=== PATIENT | male | born 1995 | race Caucasian/White ===

== ENCOUNTER 2020-08-24 14:54 | Inpatient (IN) | payer MEDICARE, MEDICAID, SELFPAY ==
[2020-08-24 14:55] VITALS: BP 133/87; PULSE 86; RESP 18; TEMP 36.6; O2SAT 94; BMI 39.9
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
[2020-08-24 15:08] VITALS: RESP 18
--- NOTE | 2020-08-24 15:48 | PC.NURSE ---
Patient reports he now wants to leave as he does not want to be here, states he was not told he was being brought here and was under the impression he was going to [facility]. Patient refusing to change out of his clothes into appropriate scrubs or allow nursing to draw blood/get urine
[2020-08-24 16:46] LABS: Basophils # 0.1 10^3/uL (0.0-0.1); Basophils % 0.7 %; Eosinophils # 0.1 10^3/uL (0.0-0.8); Eosinophils % 1.4 %; Hematocrit 43.2 % (42.0-52.0); Lymphocytes # 2.7 10^3/uL (0.8-4.8); Lymphocytes % 27.6 %; Mean Corpuscular HGB Conc 32.4 g/dL (30.0-36.0); Mean Corpuscular Hemoglobin 26.9 pg (28.0-34.0); Mean Corpuscular Volume 83.1 fL (80-94); Mean Platelet Volume 8.5 fL (7.4-10.4); Monocytes # 0.7 10^3/uL (0.2-0.9); Monocytes % 6.8 %; Neutrophils # 6.26 10^3/uL (1.8-7.7); Neutrophils % 63.1 %; Nucleated Red Blood Cells % 0 %; Platelet Count 353 10^3/cmm (130-400); Red Cell Distribution Width 13.5 % (12.1-15.1); White Blood Count 9.9 10^3/uL (4.0-10.0)
[2020-08-24 16:56] VITALS: RESP 18
[2020-08-24 17:05] LABS: Add Urine Microscopic? NO
[2020-08-24 17:07] LABS: Bilirubin Urine Neg (Negative); Blood Urine Neg (Negative); Glucose Urine UA Norm (Normal); Ketones Urine Negative (Negative); Leukocyte Esterase Urine Negative (Negative); Nitrate Urine Negative (Negative); Protein Urine Neg (Negative); Specific Gravity, Urine 1.015 (1.005-1.030); Sulfosalicylic Acid Urine Negative (Negative); Urine Appearance Clear (CLEAR); Urine Color Yellow (Yellow); Urobilinogen Urine Norm (Negative); pH Urine 9 (5-7)
[2020-08-24 17:16] LABS: Alanine Aminotransferase 33 U/L (0-41); Albumin Level 4.3 g/dL (3.5-5.2); Alkaline Phosphatase 128 IU/L (40-130); Anion Gap 16.1 (5-19); Aspartate Amino Transferase 16 U/L (0-40); Blood Urea Nitrogen 9 mg/dL (6-20); Calcium 9.3 mg/dL (8.5-10.5); Carbon Dioxide 21 mmol/L (22-29); Chloride 107 mmol/L (98-107); Globulin 2.4 g/dL (1.3-4.6); Glomerular Filtration Rate 136.3 mL/min (90-130); Glucose 118 mg/dL (65-115); Osmolality Calculated 290 mOsm/kg (285-295); Potassium 4.1 mmol/L (3.5-5.1); Sodium 140 mmol/L (136-145); Total Bilirubin 0.2 mg/dL (0.15-1.2); Total Protein 6.7 g/dL (6.6-8.7)
[2020-08-24 17:29] VITALS: BP 114/77; PULSE 76; RESP 18; TEMP 36.4; O2SAT 98
[2020-08-24 17:47] LABS: Salicylate < 0.3 mg/dL (3-10)
[2020-08-24 17:48] LABS: Acetaminophen < 5.0 ug/mL (10-30); Alcohol Level < 10 mg/dL (0-10)
[2020-08-24 18:15] LABS: Amphetamines Screen Urine Negative (Negative); Barbiturates Screen Urine Negative (Negative); Benzodiazepines Screen Urine Positive (Negative); Cocaine Screen Urine Negative (Negative); Opiate Screen Urine Negative (Negative); PCP Screen Urine Negative (Negative); THC Screen Urine Negative (Negative)
[2020-08-24 20:35] VITALS: BP 119/83; PULSE 83; RESP 16; TEMP 36.5; O2SAT 96
[2020-08-24] MEDS: hyDROXYzine 25 mg Capsule 50 MG PO (21:01)
[2020-08-25 06:00] VITALS: BP 116/54; PULSE 75; RESP 16; TEMP 36.5; O2SAT 97
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
[2020-08-25 13:40] VITALS: BP 123/76; PULSE 100; RESP 18; TEMP 36.9; O2SAT 93
[2020-08-25] MEDS: OLANZapine 5 mg ODT PO (13:59)
--- NOTE | 2020-08-25 14:11 | PC.NURSE ---
PRN Zyprexa Rubio Patient expresses anxiety and requested medication.
[2020-08-25 20:24] VITALS: BP 125/58; PULSE 120; RESP 16; TEMP 36.5; O2SAT 97
[2020-08-25] MEDS: hyDROXYzine 25 mg Capsule 50 MG PO (21:09)
[2020-08-25] MEDS: trazodone 50 mg Tablet PO (21:09)
[2020-08-26 06:00] VITALS: BP 84/54; PULSE 79; RESP 14; TEMP 37; O2SAT 97
[2020-08-26 14:00] VITALS: BP 99/61; PULSE 97; RESP 20; TEMP 36.6; O2SAT 98
--- NOTE | 2020-08-26 16:39 | PM.NPN ---
Subjective NPU Subjective: Interval history: Jacob presented today reporting that he is feeling a little better as we were able to get his Trintellix from an outside pharmacy and allow for administration here given the pharmacy here does not have his medication. Additionally we did get an interview for him that will be tomorrow for a reasonable living arrangement. He is excited but but anxious about being in the hospital. We agreed we would have the interview tomorrow and begin making plans from there. He is eating fine and sleeping okay. Mental Status Exam MSE Comments: This is an obese white male with adequate dress, grooming and eye contact. No abnormal movements except for mild psychomotor agitation. Cooperative with exam in mild distress. Speech was normal rate and volume. Mood described as anxious, affect congruent. Thought process organized. Thought content: Patient denied any suicidal or homicidal ideation, no delusions were noted, he denied any auditory or visual hallucinations. Attention and concentration were intact and memory appeared reliable but none were formally tested. He is alert and oriented x3. Insight and judgment are limited, impulse control is limited and intellectual ability is impaired. Vitals/I&O/Wt Last Vital Signs Temp 97.7 F 08/26/20 20:30 Pulse 102 H 08/26/20 20:30 Resp 16 08/26/20 20:30 BP 130/80 08/26/20 20:30 Pulse Ox 94 08/26/20 20:30 08/26/20 08/26/20 08/27/20 14:59 22:59 06:59 Intake Total 240 / 240 Balance 240 / 240 Weight last 48 hrs Weight 108.862 kg Data NPU : 08/24/20 16:40 08/24/20 16:40 A&P Additional A&P Information (1) Suicidal ideation: (2) Major depressive disorder, recurrent, moderate: (3) Obstructive sleep apnea (adult) (pediatric): (4) Schizotypal disorder: (5) Generalized anxiety disorder: (6) Intellectual disability: This is a 24-year-old white male with intellectual disability, social, and uncontrolled issues and recent challenges with his living arrangements who presents with suicidal ideation. 1. Continue current medication. 2. Continue 15-minute checks for safety. 3. Encourage individual, group and milieu therapy. 4. We will work with social work team to look at possible short-term living arrangements. Involuntary Hold Information 96 Hour Hold: 96 Hour Involuntary Admission: Yes 96 Hour Hold Ending Date: 08/30/20 96 Hour Hold Ending Time: 00:01 Attestations NPU Medical Necessity Statement*: Inpatient hospitalization is medically necessary and the clinically appropriate intervention at this time. We will monitor medications and make changes as indicated. Likely length of stay 2-4 days. Coding Level of Care Code Acute Sign Painter Helper for Melva Pagan
[2020-08-26 20:30] VITALS: BP 130/80; PULSE 102; RESP 16; TEMP 36.5; O2SAT 94
[2020-08-26] MEDS: trazodone 50 mg Tablet PO (20:57)
[2020-08-26] MEDS: hyDROXYzine 25 mg Capsule 50 MG PO (20:57)
[2020-08-26] MEDS: CLONazepam 0.5 mg Tablet PO (22:33)
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
[2020-08-27 06:00] VITALS: BP 104/60; PULSE 82; RESP 15; TEMP 36.7; O2SAT 95
[2020-08-27 14:00] VITALS: BP 108/64; PULSE 108; RESP 20; TEMP 36.3; O2SAT 97
--- NOTE | 2020-08-27 14:35 | PM.NPN ---
Subjective NPU Subjective: Interval history: Weight is really struggling with his anxiety today. He met with the housing option that was being explored and now he is anxious about it being in [place] because he reports that he was having thoughts of leaving the state. We had a long discussion about how critical it is given his mental health challenges for him to plan pulmonary that he must. So that he knows he cannot have his medication and that he is going to be financially and emotionally stable. He began talking about going home to his mom's house/apartment when in fact per his report he cannot go back there so his anxiety is currently really driving his desire to escape and get out of here. Mental Status Exam MSE Comments: This is an obese white male with adequate dress, grooming and eye contact. No abnormal movements except for mild psychomotor agitation. Cooperative with exam in mild distress. Speech was normal rate and volume. Mood described as anxious, affect congruent. Thought process organized. Thought content: Patient denied any suicidal or homicidal ideation, no delusions were reported or noted, he denied any auditory or visual hallucinations. Attention and concentration were intact and memory appeared reliable but none were formally tested. He is alert and oriented x3. Insight and judgment are limited, impulse control is limited and intellectual ability is impaired. Vitals/I&O/Wt Last Vital Signs Temp 98.2 F 08/27/20 20:45 Pulse 94 08/27/20 20:45 Resp 18 08/27/20 20:45 BP 135/80 08/27/20 20:45 Pulse Ox 98 08/27/20 20:45 Data NPU : 08/24/20 16:40 08/24/20 16:40 A&P Additional A&P Information (1) Suicidal ideation: (2) Major depressive disorder, recurrent, moderate: (3) Obstructive sleep apnea (adult) (pediatric): (4) Schizotypal disorder: (5) Generalized anxiety disorder: (6) Intellectual disability: This is a 24-year-old white male with intellectual disability, social, and uncontrolled issues and recent challenges with his living arrangements who presents with suicidal ideation. 1. Continue current medication. 2. Continue 15-minute checks for safety. 3. Encourage individual, group and milieu therapy. 4. We will work with social work team to look at possible short-term living arrangements. Involuntary Hold Information 96 Hour Hold: 96 Hour Involuntary Admission: Yes 96 Hour Hold Ending Date: 08/30/20 96 Hour Hold Ending Time: 00:01 Attestations NPU Medical Necessity Statement*: Inpatient hospitalization is medically necessary and the clinically appropriate intervention at this time. We will monitor medications and make changes as indicated. Likely length of stay 1-3 days. Coding Level of Care Code Acute Gynaecological Oncologist for Melva Pagan
[2020-08-27] MEDS: CLONazepam 0.5 mg Tablet PO (20:38)
[2020-08-27] MEDS: trazodone 50 mg Tablet PO (20:38)
[2020-08-27] MEDS: hyDROXYzine 25 mg Capsule 50 MG PO (20:39)
[2020-08-27 20:45] VITALS: BP 135/80; PULSE 94; RESP 18; TEMP 36.8; O2SAT 98
[2020-08-28 06:00] VITALS: BP 109/68; PULSE 64; RESP 17; TEMP 36.7; O2SAT 98
[2020-08-28 13:13] VITALS: BP 121/81; PULSE 102; RESP 18; TEMP 36.4; O2SAT 96
--- NOTE | 2020-08-28 17:11 | PM.NPN ---
Subjective NPU Subjective: Interval history: Weight presented today fairly anxious about discharge and desiring to go back to his mom's place. We were able to talk to both mom and him to get a beltran sense of the dynamics. Her greatest concern was his absence of effective anxiety treatment which we now know was in part due to him being off of the medication for a period of time due to lack of having a provider but also to likely ineffectiveness of the medication. We discussed the risk benefits and alternatives of discontinuing the Trintellix and starting Paxil as well as resuming a low-dose as needed of Inderal and he understood and agreed to proceed as is documented in this note. Mental Status Exam MSE Comments: This is an obese white male with adequate dress, grooming and eye contact. No abnormal movements except for mild psychomotor agitation. Cooperative with exam in mild distress. Speech was normal rate and volume. Mood described as anxious, affect congruent. Thought process organized. Thought content: Patient denied any suicidal or homicidal ideation, no delusions were reported or noted, he denied any auditory or visual hallucinations. Attention and concentration were intact and memory appeared reliable but none were formally tested. He is alert and oriented x3. Insight and judgment are limited, impulse control is limited and intellectual ability is impaired. Vitals/I&O/Wt Last Vital Signs Temp 97.7 F 08/28/20 20:24 Pulse 95 08/28/20 20:24 Resp 19 H 08/28/20 20:24 BP 125/84 08/28/20 20:24 Pulse Ox 93 08/28/20 20:24 Data NPU : 08/24/20 16:40 08/24/20 16:40 A&P Additional A&P Information (1) Suicidal ideation: (2) Major depressive disorder, recurrent, moderate: (3) Obstructive sleep apnea (adult) (pediatric): (4) Schizotypal disorder: (5) Generalized anxiety disorder: (6) Intellectual disability: This is a 24-year-old white male with intellectual disability, social, and uncontrolled issues and recent challenges with his living arrangements who presents with suicidal ideation. 1. Continue current medication. Discontinue Trintellix, start Paxil 20 mg p.o. daily and Inderal 10 mg p.o. 3 times daily as needed. 2. Continue 15-minute checks for safety. 3. Encourage individual, group and milieu therapy. 4. We will work with social work team to look at possible short-term living arrangements. Involuntary Hold Information 96 Hour Hold: 96 Hour Involuntary Admission: Yes 96 Hour Hold Ending Date: 08/30/20 96 Hour Hold Ending Time: 00:01 Attestations NPU Medical Necessity Statement*: Inpatient hospitalization is medically necessary and the clinically appropriate intervention at this time. We will monitor medications and make changes as indicated. Likely length of stay 1-3 days. Coding Level of Care Code Acute Branch Operation Evaluation Manager for Melva Pagan
--- NOTE | 2020-08-28 19:37 | NUR.SHIFT ---
PM Assessment Pt is pacing in his room at this time. He reports pain in both of his feet as a 7 on a 1-10 pain scale. He says I have pain in my feet a lot because I am flat footed. Pt seems anxious, reports racing negative thoughts. Pt is worried that he has black circles under his eyes and wants to know if his Iron levels are low or he is anemic. He reports low energy and chronic fatigue. Pt reports Klonipin makes his tired during the day when he takes it but it slows down the thoughts. Will continue to monitor patient this evening.
[2020-08-28] MEDS: acetaminophen 325 mg Tablet 650 MG PO (20:06)
[2020-08-28] MEDS: PARoxetine 20 mg Tablet PO (20:06)
[2020-08-28] MEDS: hyDROXYzine 25 mg Capsule 50 MG PO (20:06)
--- NOTE | 2020-08-28 20:21 | PC.NURSE ---
PRN MED PT GIVEN 50MG VISTARIL FOR STATED ANXIETY, WILL CONTINUE TO MONITOR.
[2020-08-28 20:24] VITALS: BP 125/84; PULSE 95; RESP 19; TEMP 36.5; O2SAT 93
[2020-08-28] MEDS: trazodone 50 mg Tablet PO (23:42)
--- NOTE | 2020-08-28 23:44 | PC.NURSE ---
PRN MED PT GIVEN 50MG TRAZADONE FOR INSOMNIA, WILL CONTINUE TO MONITOR.
--- NOTE | 2020-08-29 03:45 | PC.NURSE ---
Discharge Plans? Pt is anxious and wants to know what the plan is for his discharge. He told staff that he is ready to go home and wants to try to live with his mother again. He knows that this was not the best choice before but thinks it may be better this time around. I asked the patient why he decided to avoid the nursing home and he said it would cause him to much anxiety to have a room mate.. He also said that the homeless long-term would be worse. he says he feels trapped in his life but when offered potential changes to his living arrangement, he refuses.
[2020-08-29 06:00] VITALS: BP 108/68; PULSE 63; RESP 17; TEMP 36.7; O2SAT 97
[2020-08-29] MEDS: PARoxetine 20 mg Tablet PO (08:19)
--- NOTE | 2020-08-29 12:48 | PM.NPN ---
Subjective NPU Subjective: Interval history: Weight presents today reporting that he is tolerating the change in the medication quite well. He reports that he did have some of the Inderal which was helpful as well. We discussed our conversation with his mother and her reporting that she needed to know that he had something effective for his anxiety before he came back in the house. We discussed the possibility of discharge tomorrow if he continues to feel better finally. Mental Status Exam MSE Comments: This is an obese white male with adequate dress, grooming and eye contact. No abnormal movements except for resolving psychomotor agitation. Cooperative with exam in mild distress, but improving. Speech was normal rate and volume. Mood described as a little better, affect congruent. Thought process organized. Thought content: Patient denied any suicidal or homicidal ideation, no delusions were reported or noted, he denied any auditory or visual hallucinations. Attention and concentration were intact and memory appeared reliable but none were formally tested. He is alert and oriented x3. Insight and judgment are improving, impulse control is limited and intellectual ability is impaired. Vitals/I&O/Wt Last Vital Signs Temp 98.1 F 08/29/20 06:00 Pulse 63 08/29/20 06:00 Resp 17 08/29/20 06:00 BP 108/68 08/29/20 06:00 Pulse Ox 97 08/29/20 06:00 Data NPU : 08/24/20 16:40 08/24/20 16:40 A&P Additional A&P Information (1) Suicidal ideation: (2) Major depressive disorder, recurrent, moderate: (3) Obstructive sleep apnea (adult) (pediatric): (4) Schizotypal disorder: (5) Generalized anxiety disorder: (6) Intellectual disability: This is a 24-year-old white male with intellectual disability, social, and uncontrolled issues and recent challenges with his living arrangements who presents with suicidal ideation. 1. Continue current medication. 2. Continue 15-minute checks for safety. 3. Encourage individual, group and milieu therapy. 4. Tentative plan for discharge back to his mother's apartment tomorrow. Involuntary Hold Information 96 Hour Hold: 96 Hour Involuntary Admission: Yes 96 Hour Hold Ending Date: 08/30/20 96 Hour Hold Ending Time: 00:01 Attestations NPU Medical Necessity Statement*: Inpatient hospitalization is medically necessary and the clinically appropriate intervention at this time. We will monitor medications and make changes as indicated. Likely length of stay 1-2 days. Coding Level of Care Code Acute Graphic Design Intern for Melva Pagan
[2020-08-29 14:00] VITALS: BP 125/63; PULSE 86; RESP 18; TEMP 37; O2SAT 96
[2020-08-29 20:10] VITALS: BP 126/82; PULSE 83; RESP 19; TEMP 36.6; O2SAT 95
[2020-08-29] MEDS: hyDROXYzine 25 mg Capsule 50 MG PO (21:33)
[2020-08-29] MEDS: CLONazepam 0.5 mg Tablet PO (21:33)
[2020-08-29] MEDS: trazodone 50 mg Tablet PO (21:34)
[2020-08-30 06:00] VITALS: BP 91/55; PULSE 72; RESP 17; TEMP 36.4; O2SAT 99
[2020-08-30] MEDS: PARoxetine 20 mg Tablet PO (08:14)
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
[2020-08-30 11:42] VITALS: BP 91/55; PULSE 72; RESP 17; TEMP 36.4; O2SAT 99
--- NOTE | 2020-09-27 15:37 | PC.SOCIAL ---
Refill request received, confirmed with patient he wanted [facility]. GAGE Pack will call in at Dr. Jimenez request.
== END 2020-08-30 12:54 | disposition home or self-care (01) | DRG 885 ==
LOC: ER 17:04 → NP 17:10
PROVIDERS: Emergency Medicine; Registered Nurse; Admitting Provider Psychiatry & Neurology Psychiatry; Emergency Provider Nurse Practitioner Family; Visit Provider Psychiatry & Neurology Psychiatry
DX: F33.1 Major depressive disorder, recurrent, moderate (principal); R45.851 Suicidal ideations; G47.33 Obstructive sleep apnea (adult) (pediatric); F21 Schizotypal disorder; F41.1 Generalized anxiety disorder; F79 Unspecified intellectual disabilities; Z87.891 Personal history of nicotine dependence; Z91.5 Personal history of self-harm
CPT/HCPCS: 12345; 36415; 80053; 80306; 80307; 81003; 85025; 99284

== ENCOUNTER → 2021-10-06 10:31 | Outpatient (BNVA) | payer MEDICARE, MEDICAID, SELFPAY | PROVIDERS: PCP Family Medicine; Visit Provider Registered Nurse | DX: Z79.899 Other long term (current) drug therapy (principal) | CPT/HCPCS: 36415; 80053; 80061; 82306; 82607; 83036; 84443; 85025 ==

== ENCOUNTER → 2021-11-20 13:38 | Outpatient (BNVA) | payer MEDICARE, MEDICAID, SELFPAY | PROVIDERS: PCP Family Medicine; Visit Provider Nurse Practitioner | DX: F41.1 Generalized anxiety disorder (principal); F21 Schizotypal disorder; F79 Unspecified intellectual disabilities; F33.1 Major depressive disorder, recurrent, moderate; R41.83 Borderline intellectual functioning; F43.12 Post-traumatic stress disorder, chronic | CPT/HCPCS: 99215 ==

== ENCOUNTER → 2022-01-28 08:00 | Outpatient (BNVA) | payer MEDICARE, MEDICAID, SELFPAY | PROVIDERS: PCP Family Medicine; Visit Provider Nurse Practitioner | DX: F43.12 Post-traumatic stress disorder, chronic (principal); F41.1 Generalized anxiety disorder; F33.1 Major depressive disorder, recurrent, moderate; R41.83 Borderline intellectual functioning; F21 Schizotypal disorder; F79 Unspecified intellectual disabilities | CPT/HCPCS: 99214 ==

== ENCOUNTER → 2022-02-13 15:04 | Outpatient (BNVA) | payer MEDICARE, MEDICAID, SELFPAY | PROVIDERS: PCP Family Medicine; Visit Provider Nurse Practitioner | DX: F41.1 Generalized anxiety disorder (principal); F21 Schizotypal disorder; F33.1 Major depressive disorder, recurrent, moderate; F79 Unspecified intellectual disabilities; F43.12 Post-traumatic stress disorder, chronic | CPT/HCPCS: 99214 ==

== ENCOUNTER 2022-05-10 06:48 | Emergency (ER) | payer MEDICARE, MEDICAID, SELFPAY ==
[2022-05-10 06:56] VITALS: BP 138/111; PULSE 82; RESP 16; TEMP 37; O2SAT 98; BMI 37.8
--- NOTE | 2022-05-10 07:11 | W.ED.PSYCHS ---
HPI - Psych General: Chief Complaint: Psychiatric Symptoms Stated Complaint: SI; OUT OF MEDS Time Seen by Provider: 05/10/22 07:00 History of Present Illness: 26-year-old male presents with feelings of depression, some anxiety and paranoia. Patient reports he just feels paranoid and shaky all the time that people are just watching him and staring at him and is always at the center of attention. Patient reports that he is currently dealing with extra stress of his mom being in the hospital for Guillain-Munoz?. Patient denies any thoughts of current wanting to hurt himself but states that he has had those thoughts on and off in the past and had felt like he had them a couple days ago. He denies any thoughts of wanting to hurt anybody else. Patient reports that he recently just got back in the area from [place] after being down with his dad. Patient denies any fever chills or any other systemic complaints. Associated symptoms: Reports depression Review of Systems Const: Denies: fever(s) or chills Eyes: Denies: change in vision or eye discharge ENMT: Denies: throat pain or ear or mastoid pain Card: Denies: chest pain, palpitations or lightheadedness Resp: Denies: dyspnea or productive cough GI: Denies: abdominal pain, nausea or vomiting : Denies: flank pain or difficulty urinating Musc: Denies: neck pain or back pain Skin/Breast: Denies: rash or pruritus Neuro: Denies: headache(s), numbness in extremities or sensory changes Psych: Reports: anxiety, depression, panic attacks, hopelessness and paranoia Endo: Denies: polyuria or polydipsia All/Imm: Denies: urticaria or throat swelling [facility] ED PFSH: Medical History (Updated 05/10/22 @ 15:22 by Alessandro Rodriguez DO) Borderline intellectual functioning Chronic post-traumatic stress disorder Generalized anxiety disorder High level of expressed emotion within family Inadequate housing Major depressive disorder, recurrent, moderate Obstructive sleep apnea (adult) (pediatric) untreated Panic attack Psychiatric care Schizotypal disorder Family History Family/Other CAD (coronary artery disease) Diabetes Social History Quit status (tobacco): has quit using tobacco Second hand smoke exposure: No Alcohol intake: former History of recent travel: No Physical Exam Const: COMMON NORMALS: patient oriented x3 GENERAL APPEARANCE: cooperative, well kempt and anxious; not ill appearing HENMT: COMMON NORMALS: normocephalic, atraumatic and hearing grossly normal bilaterally HEAD & SCALP: normocephalic and atraumatic Eye: COMMON NORMALS: Equal, round and reactive pupils present and EOMs intact bilaterally PUPIL: Yes Equal, round and reactive pupils present Neck/C-Spine: COMMON NORMALS: full ROM and supple Chest: COMMONS NORMALS: normal inspection of the chest Resp: COMMON NORMALS: normal respiratory effort and No use of accessory muscles Cardio: COMMON NORMALS: regular rate and regular rhythm RATE: regular rate RHYTHM: regular rhythm GI: COMMON NORMALS: Normal to inspection, nondistended, normoactive bowel sounds present, Soft to palpation and non-tender PALPATION: Yes Soft to palpation Extremity: COMMON NORMALS: normal to inspection, full ROM and capillary refill normal Neuro: COMMON NORMALS: patient oriented x3, moves all extremities, no focal motor deficits and no sensory deficits noted Psych: COMMON NORMALS: Normal thought process present and speech normal APPEARANCE: Yes grossly normal and Yes well kempt ATTITUDE: Yes paranoid ACTIVITY/MOTOR BEHAVIOR: Yes appropriate eye contact, Yes fidgeting and Yes restless SPEECH: Yes normal speech MOOD & AFFECT: Yes anxious THOUGHT PROCESS: Normal thought process present ATTENTION/CONCENTRATION: Yes attention grossly intact and Yes concentration grossly intact Course Vital Signs: Vital signs: Vital Signs Temperature 98.6 F 05/10/22 06:56 Pulse Rate 84 05/10/22 15:42 Respiratory Rate 16 05/10/22 06:56 Blood Pressure 123/68 05/10/22 15:42 Pulse Oximetry 96 05/10/22 15:42 Oxygen Delivery Me thod 05/10/22 15:42 MDM - Psych Medical Decision Making Patient discussed with Dr. Jimenez psychiatry. He felt patient would benefit from admissionfor inpatient treatment for his paranoid thoughts and depression. Patient likely to be a 24-hour hold in the ER while we await bed availability. While awaiting possible bed placement at [facility] we reached out to other facilities and patient was accepted for transfer to [facility] by Dr. Downey. Patient to be transferred in stable condition. Lab Data : 05/10/22 07:48 05/10/22 07:35 Laboratory Results WBC 14.4 10^3/uL (4.0-10.0) H 05/10/22 07:48 RBC 5.32 10^6/uL (4.1-5.3) H 05/10/22 07:48 Hgb 14.9 g/dL (11.7-16.6) 05/10/22 07:48 Hct 43.3 % (42.0-52.0) 05/10/22 07:48 MCV 81.4 fl (80-94) 05/10/22 07:48 MCH 28.0 pg (28.0-34.0) 05/10/22 07:48 MCHC 34.4 g/dL (30.0-36.0) 05/10/22 07:48 RDW 13.5 % (12.1-15.1) 05/10/22 07:48 Plt Count 330 10^3/cmm (130-400) 05/10/22 07:48 MPV 9.1 fL (7.4-10.4) 05/10/22 07:48 Neut % (Auto) 74.9 % 05/10/22 07:48 Lymph % (Auto) 16.6 % 05/10/22 07:48 Nolan % (Auto) 7.2 % 05/10/22 07:48 Eos % (Auto) 0.6 % 05/10/22 07:48 Baso % (Auto) 0.3 % 05/10/22 07:48 Neut # (Auto) 10.77 10^3/uL (1.8-7.7) H 05/10/22 07:48 Lymph # (Auto) 2.4 10^3/uL (0.8-4.8) 05/10/22 07:48 Nolan # (Auto) 1.0 10^3/uL (0.2-0.9) H 05/10/22 07:48 Eos # (Auto) 0.1 10^3/uL (0.0-0.8) 05/10/22 07:48 Baso # (Auto) 0.1 10^3/uL (0.0-0.1) 05/10/22 07:48 Nucleated RBC % (auto) 0 % 05/10/22 07:48 Nucleated RBCs # 0.0 /100WBC 05/10/22 07:48 Sodium 140 mmol/L (136-145) 05/10/22 07:35 Potassium 3.8 mmol/L (3.5-5.1) 05/10/22 07:35 Chloride 105 mmol/L (98-107) 05/10/22 07:35 Carbon Dioxide 16 mmol/L (22-29) L 05/10/22 07:35 Anion Gap 22.8 (5-19) H 05/10/22 07:35 BUN 14 mg/dL (6-20) 05/10/22 07:35 Creatinine 0.8 mg/dL (0.7-1.2) 05/10/22 07:35 GFR Calculation 115.1 mL/min (90-130) 05/10/22 07:35 Glucose 132 mg/dL (65-115) H 05/10/22 07:35 Calculated Osmolality 292 mOsm/kg (285-295) 05/10/22 07:35 Calcium 9.5 mg/dL (8.5-10.5) 05/10/22 07:35 Total Bilirubin 1.4 mg/dL (0.15-1.2) H 05/10/22 07:35 AST 21 U/L (0-40) 05/10/22 07:35 ALT 45 U/L (0-41) H 05/10/22 07:35 Alkaline Phosphatase 142 IU/L (40-130) H 05/10/22 07:35 Total Protein 7.2 g/dL (6.6-8.7) 05/10/22 07:35 Albumin 4.6 g/dL (3.5-5.2) 05/10/22 07:35 Globulin 2.6 g/dL (1.3-4.6) 05/10/22 07:35 TSH 2.48 uIU/mL (0.27-4.20) 05/10/22 07:35 Urine Color Dark yellow (Yellow) 05/10/22 09:44 Urine Appearance Sl hazy (CLEAR) 05/10/22 09:44 Urine pH 5 (5-7) 05/10/22 09:44 Ur Specific [place] 1.020 (1.005-1.030) 05/10/22 09:44 Urine Protein 1+ (Negative) H 05/10/22 09:44 Urine Glucose (UA) Norm (Normal) 05/10/22 09:44 Urine Ketones 3+ (Negative) H 05/10/22 09:44 Urine Blood Trace (Negative) H 05/10/22 09:44 Urine Nitrate Negative (Negative) 05/10/22 09:44 Urine Bilirubin 1+ (Negative) H 05/10/22 09:44 Urine Urobilinogen 4 mg/dL (Negative) H 05/10/22 09:44 Ur Leukocyte Esterase Trace (Negative) H 05/10/22 09:44 Urine RBC Rare /hpf (0-2) 05/10/22 09:44 Urine WBC 0-4 /hpf (0-5) H 05/10/22 09:44 Ur Squamous Epith Cells None /hpf (0-5) 05/10/22 09:44 Amorphous Sediment Not Reportable 05/10/22 09:44 Urine Bacteria Trace /hpf (NONE) 05/10/22 09:44 Urine Mucus 2+ /hpf 05/10/22 09:44 Salicylates < 0.3 mg/dL (3-10) L 05/10/22 07:35 Urine Opiates Screen Negative ng/mL (Negative) 05/10/22 09:44 Acetaminophen < 5.0 ug/mL (10-30) L 05/10/22 07:35 Ur Barbiturates Screen Negative ng/mL (Negative) 05/10/22 09:44 Ur Phencyclidine Scrn Negative ng/mL (Negative) 05/10/22 09:44 Ur Amphetamines Screen Negative ng/mL (Negative) 05/10/22 09:44 U Benzodiazepines Scrn Positive ng/mL (Negative) H 05/10/22 09:44 Urine Cocaine Screen Negative ng/mL (Negative) 05/10/22 09:44 U Marijuana (THC) Screen Negative ng/mL (Negative) 05/10/22 09:44 Ethyl Alcohol < 10 mg/dL (0-10) 05/10/22 07:35 SARS-CoV-2 Ag (Rapid) Negative (Negative) 05/10/22 09:08 Discharge Plan Discharge Patient Disposition: [facility] Clinical Impression: Schizotypal disorder, Depression, Paranoid ideation Condition: Stable Discharge Orders: Transfer Out of Facility (Order); Ordered 05/10/22 Ordered By: Alessandro Rodriguez Referrals: Winston Davila [Referring] - Discharge Diet: Usual diet Coding Level of Care Code ED Manufacturing Weaver for Chg Fwd Exam Comprehensive
[2022-05-10 08:02] LABS: Basophils # 0.1 10^3/uL (0.0-0.1); Basophils % 0.3 %; Eosinophils # 0.1 10^3/uL (0.0-0.8); Eosinophils % 0.6 %; Hematocrit 43.3 % (42.0-52.0); Hemoglobin 14.9 g/dL (11.7-16.6); Lymphocytes # 2.4 10^3/uL (0.8-4.8); Lymphocytes % 16.6 %; Mean Corpuscular HGB Conc 34.4 g/dL (30.0-36.0); Mean Corpuscular Volume 81.4 fl (80-94); Mean Platelet Volume 9.1 fL (7.4-10.4); Monocytes % 7.2 %; Neutrophils # 10.77 10^3/uL (1.8-7.7); Neutrophils % 74.9 %; Nucleated Red Blood Cells % 0 %; Platelet Count 330 10^3/cmm (130-400); Red Blood Count 5.32 10^6/uL (4.1-5.3); Red Cell Distribution Width 13.5 % (12.1-15.1); White Blood Count 14.4 10^3/uL (4.0-10.0)
[2022-05-10 08:24] LABS: Alanine Aminotransferase 45 U/L (0-41); Albumin Level 4.6 g/dL (3.5-5.2); Alkaline Phosphatase 142 IU/L (40-130); Anion Gap 22.8 (5-19); Aspartate Amino Transferase 21 U/L (0-40); Blood Urea Nitrogen 14 mg/dL (6-20); Calcium 9.5 mg/dL (8.5-10.5); Carbon Dioxide 16 mmol/L (22-29); Chloride 105 mmol/L (98-107); Globulin 2.6 g/dL (1.3-4.6); Glomerular Filtration Rate 115.1 mL/min (90-130); Glucose 132 mg/dL (65-115); Osmolality Calculated 292 mOsm/kg (285-295); Potassium 3.8 mmol/L (3.5-5.1); Sodium 140 mmol/L (136-145); Thyroid Stimulating Hormone 2.48 uIU/mL (0.27-4.20); Total Bilirubin 1.4 mg/dL (0.15-1.2); Total Protein 7.2 g/dL (6.6-8.7)
[2022-05-10 08:26] LABS: Acetaminophen < 5.0 ug/mL (10-30); Alcohol Level < 10 mg/dL (0-10); Salicylate < 0.3 mg/dL (3-10)
[2022-05-10 10:03] LABS: SARS Covid-2 Antigen Negative (Negative)
[2022-05-10 10:05] LABS: Amphetamines Screen Urine Negative (Negative); Barbiturates Screen Urine Negative (Negative); Benzodiazepines Screen Urine Positive (Negative); Cocaine Screen Urine Negative (Negative); Opiate Screen Urine Negative (Negative); PCP Screen Urine Negative (Negative); THC Screen Urine Negative (Negative)
[2022-05-10 10:06] LABS: Urine Appearance SL Hazy (CLEAR); Urine Color Dark Yellow (Yellow); pH Urine 5 (5-7)
[2022-05-10 10:07] LABS: Blood Urine Trace (Negative); Glucose Urine UA Norm (Normal); Ketones Urine 3+ (Negative); Nitrate Urine Negative (Negative); Protein Urine 1+ (Negative)
[2022-05-10 10:09] LABS: Add Urine Microscopic? YES; Bilirubin Urine 1+ (Negative); Leukocyte Esterase Urine Trace (Negative); Urobilinogen Urine 4 mg/dL (Negative)
[2022-05-10 10:11] LABS: Bacteria Urine TRACE /hpf; Mucus Urine 2+ /hpf; RBC Urine RARE /hpf (0-2); WBC Urine 0-4 /hpf (0-5)
[2022-05-10 10:12] LABS: Add Urine Culture? No
[2022-05-10] MEDS: doxycycline 100 mg Tablet PO (15:35)
[2022-05-10 15:42] VITALS: BP 123/68; PULSE 84; O2SAT 96
[2022-05-10 18:30] VITALS: BP 131/84; PULSE 84; RESP 16; O2SAT 97
== END 2022-05-10 19:04 ==
PROVIDERS: Emergency Provider Student in an Organized Health Care Education/Training Program; PCP Surgery
DX: F32.A Depression, unspecified (principal); F22 Delusional disorders; F21 Schizotypal disorder; Z87.891 Personal history of nicotine dependence
CPT/HCPCS: 80053; 80306; 80307; 81001; 84443; 85025; 87426; 99285

== ENCOUNTER → 2022-11-17 13:51 | Outpatient (BNVA) | payer OTHER, SELFPAY | PROVIDERS: PCP Surgery; Visit Provider Nurse Practitioner Psychiatric/Mental Health | DX: F41.1 Generalized anxiety disorder (principal); Z79.899 Other long term (current) drug therapy | CPT/HCPCS: 80061; 83036 ==

== ENCOUNTER 2023-05-12 23:14 | Inpatient (IN) | payer MEDICARE, MEDICAID, SELFPAY ==
[2023-05-12 15:23] VITALS: BP 152/98; BMI 41.0
--- OUTSIDE RECORDS SUMMARY | 2023-05-12 21:50 | XMS_ITS | Continuity of Care Document ---
Author Name Unknown Organization [facility] Address [address] [place] [id number] Phone Care Team Providers Care Small Electric Engine Technician Name Role Phone CONV, [facility] Unavailable Unavailable Advance Directives Directive Yes / No Effective Date File Name No Information Encounters Encounter Description Practice Location Reason(s) For Visit Diagnoses Date Provider Providers Copied on Encounter [facility] /[facility], [address] [place] [address], [id number], [place] tel:[phone] Z [facility] CONV No Information CONV [facility]. [address] [place] [address], [id number], [place]. Family History Family Member Type Diagnosis Age At Onset No Information Immunizations Vaccine Date Status Comments DTAP administered Note: LA ; Sour ce: New Immunization Record [id number], PED/ADL administer ed Note: RA ; Source: New Immunization Record ORAL POLIO administered Note: PO ; Sour ce: New Immunization Record [id number], PED/ADL administer ed Source: New Immunization Record DPT/HIB COMBINATION administered Source: New Immunization Record HEP B VACCINE PED/ADOL administered Sourc e: New Immunization Record DTP administered Source: New Imm unization Record ORAL POLIO administered Source: New Imm unization Record HIB 3 DOSE SERIES administered Source: Ne w Immunization Record DTP administered Source: New Imm unization Record ORAL POLIO administered Source: New Imm unization Record HEP B VACCINE PED/ADOL administered Sourc e: New Immunization Record HEP B VACCINE PED/ADOL administered Sourc e: New Immunization Record HIB 3 DOSE SERIES administered Source: Ne w Immunization Record DTP administered Source: New Imm unization Record ORAL POLIO administered Source: New Imm unization Record Payers Payer name Insurance type Covered libertarian ID Authoriza tion(s) No Information Social History Type Description Quantity Date Captured Comments Sex Male Smoking Status No Information Chief Complaint And Reason For Visit No Information History Of Present Illness Encounter Date Complaint History Of Prese nt Illness No Information Instructions Date Instruction Additional Infor mation No Information Assessments Type Assessment Date No Information Patient Care Teams Name Effective Dates (start - stop) Status Members No Information
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
--- OUTSIDE RECORDS SUMMARY | 2023-05-12 23:16 | XMS_ITS | Continuity of Care Document ---
Author Name Unknown Organization [facility] Address [address] [place] [address] Phone Care Team Providers Care Chocolate Molder Name Role Phone CONV, [facility] Unavailable Unavailable Advance Directives Directive Yes / No Effective Date File Name No Information Encounters Encounter Description Practice Location Reason(s) For Visit Diagnoses Date Provider Providers Copied on Encounter [facility], [address] [place] [address], [id number], [place] tel:[phone] Z [facility] CONV No Information CONV [facility]. [address] [place] [address], [id number], [place]. Family History Family Member Type Diagnosis Age At Onset No Information Immunizations Vaccine Date Status Comments DTAP administered Note: LA ; Sour ce: New Immunization Record [id number], PED/ADL administer ed Note: RA ; Source: New Immunization Record ORAL POLIO administered Note: PO ; Sour ce: New Immunization Record [id number], PED/ADL administer ed Source: New Immunization Record [...] Record Payers Payer name Insurance type Covered alliance party ID Authoriza tion(s) No Information Social History [...]
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
--- OUTSIDE RECORDS SUMMARY | 2023-05-12 23:17 | XMS_ITS | Continuity of Care Document ---
Author Name Unknown Organization [facility] Address [address] [place] [id number] Phone Care Team Providers Care Rice Dryer Mechanic Name Role Phone CONV, [facility] Unavailable Unavailable Advance Directives Directive Yes / No Effective Date File Name No Information Encounters Encounter Description Practice Location Reason(s) For Visit Diagnoses Date Provider Providers Copied on Encounter [facility], [address] [place] [address], [id number], [place] tel:[phone] [facility] CONV No Information [facility]. [address] [place] [address], [id number], [place]. Family History Family Member Type Diagnosis Age At Onset No Information Immunizations Vaccine Date Status Comments DTAP administered Note: LA ; Sour ce: New Immunization Record [id number], PED/ADL administer ed Note: RA ; Source: New Immunization Record ORAL POLIO administered Note: PO ; Sour ce: New Immunization Record [id number], PED/ADL administer ed Source: New Immunization Record [...] Record Payers Payer name Insurance type Covered democrat ID Authoriza tion(s) No Information Social History [...]
[2023-05-12 23:18] VITALS: BP 121/75; PULSE 82; RESP 18; TEMP 36.5; O2SAT 99
[2023-05-13 06:00] VITALS: BP 98/65; PULSE 68; RESP 15; O2SAT 98
[2023-05-13] MEDS: metformin 500 mg Tablet PO (08:42)
[2023-05-13] MEDS: atorvastatin 40 mg Tablet PO (08:42)
[2023-05-13] MEDS: fluoxetine 20 mg Capsule 80 MG PO (08:42)
[2023-05-13] MEDS: hyDROXYzine 25 mg Capsule 50 MG PO ×2 (08:42→17:34)
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
[2023-05-13 14:00] VITALS: BP 103/63; PULSE 74; RESP 16; TEMP 36.6; O2SAT 95
[2023-05-13] MEDS: OLANZapine 5 mg ODT PO (19:30)
[2023-05-13] MEDS: paliperidone ER 6 mg Tablet PO (20:51)
[2023-05-13 20:57] VITALS: BP 114/75; PULSE 85; RESP 20; TEMP 36.8; O2SAT 95
[2023-05-14 06:00] VITALS: BP 134/53; PULSE 66; RESP 18; O2SAT 98
[2023-05-14] MEDS: fluoxetine 20 mg Capsule 80 MG PO (09:16)
[2023-05-14] MEDS: atorvastatin 40 mg Tablet PO (09:16)
[2023-05-14] MEDS: hyDROXYzine 25 mg Capsule 50 MG PO ×2 (09:16→17:47)
[2023-05-14] MEDS: metformin 500 mg Tablet PO (09:16)
[2023-05-14 14:00] VITALS: BP 104/69; PULSE 78; RESP 16; TEMP 36.8; O2SAT 96
--- NOTE | 2023-05-14 15:22 | P.NPUPN_ITS ---
Subjective NPU Subjective: Patient is a 27-year-old white male admitted with suicidal ideation and depressed mood in the context of family strife with an extended history of aggression poor impulse control and social anxiety disorder. Patient was restarted on his Prozac and Invega. He had been calm and cooperative on the unit but reported feeling uncomfortable. He had initially stated that he may need to be placed outside of his mother's home but later stated that he did not want to be in a place where they took all of his income from disability. Patient had not yet spoken with his mother and it was uncertain as to whether he would be a candidate to return home. He had reported adequate sleep. He had continue to avoid attending groups and stated that he felt uncomfortable being here. He had endorsed a history of rigid thinking with difficulties with managing changes in routine and structure. He had reported continued problems with isolation stated that he had perpetual difficulties with interpreting people's facial expression and determining nonverbal behaviors. He had repeatedly asked staff whether he would be able to go home to his mother. Mental Status Exam MSE Comments: Is an obese white male with adequate dressing grooming and fleeting eye contact. There was no evidence of any abnormal involuntary motor movements tics or tremors appreciated. He appeared in mild to moderate distress. His speech was normal in regards to rate and volume and monotone in quality. His mood was described as down. His affect was restricted in range and mood-congruent. His thought process was linear logical and organized. His thought content showed no evidence of active homicidal ideation and he denied any suicidal ideation. He did appear to perseverate about wanting to go home. There was no clear evidence of delusional thinking. He did not appear to be responding to internal stimuli and denied any auditory or visual hallucinations. His attention and concentration are intact. His insight is impaired. His judgment is poor. His impulse control appeared limited. His fund of knowledge appeared below average. Vitals/I&O/Wt Last Vital Signs Temp 98.3 F 05/14/23 14:00 Pulse 78 05/14/23 14:00 Resp 16 05/14/23 14:00 BP 104/69 05/14/23 14:00 Pulse Ox 96 05/14/23 14:00 O2 Del Method Room Air 05/14/23 14:00 Weight last 48 hrs Weight 101.605 kg A&P Assessment and plan (1) Impulse control disorder, unspecified: (2) MDD (major depressive disorder), recurrent episode, severe: (3) PDD (pervasive developmental disorder): (4) Social anxiety disorder: Plan 27-year-old male with a possible history of intellectual disability with a history of depression and significant problems with aggression and explosive outburst admitted after continued stress in the home with his mother that has been longstanding. Patient would likely benefit from acute inpatient hospitalization with medication adjustment. 1.?Encourage individual, group and milieu therapy. 2.?Recommend sober living treatment at the highest level of care to which the patient is willing to commit. 3.?? ? Continue q-15 minute checks for safety. 4 Restart outpatient medications including Prozac 80mg daily and Invega 6mg daily. Involuntary Hold Information 96 Hour Hold: 96 Hour Involuntary Admission: No 96 Hour Hold Ending Date: 08/30/20 96 Hour Hold Ending Time: 00:01 Attestations NPU Medical Necessity Statement*: Inpatient hospitalization is medically necessary and the clinically appropriate intervention at this time. We will monitor medications and make changes as indicated. His likely length of stay 1-2 days. Coding Level of Care Code Acute Code for [facility] Fwd Diagnoses Impulse control disorder, unspecified F63.9 MDD (major depressive disorder), recurrent episode, severe F33.2 PDD (pervasive developmental disorder) F84.9 Social anxiety disorder F40.10
--- NOTE | 2023-05-14 16:12 | PC.NURSE ---
phone #'s Mom called and left another phone number to be reached at [phone]. Mom left a number for Mr. Rodriguez who gives [employer] rides on the weekends .
--- NOTE | 2023-05-14 16:16 | PC.NURSE ---
This nurse spoke with pt's mother and she stated that the pt was able to come home after discharge.
--- NOTE | 2023-05-14 17:00 | DCPLANNER ---
IMM was printed and explained and give to pt and copy put in file.
[2023-05-14 19:42] VITALS: BP 133/86; PULSE 82; RESP 18; TEMP 36.5; O2SAT 94
[2023-05-14] MEDS: paliperidone ER 6 mg Tablet PO (20:05)
[2023-05-15 06:00] VITALS: BP 99/63; PULSE 87; RESP 18; TEMP 36.6; O2SAT 99
[2023-05-15] MEDS: fluoxetine 20 mg Capsule 80 MG PO (09:08)
[2023-05-15] MEDS: atorvastatin 40 mg Tablet PO (09:08)
[2023-05-15] MEDS: hyDROXYzine 25 mg Capsule 50 MG PO (09:08)
[2023-05-15] MEDS: metformin 500 mg Tablet PO (09:08)
[2023-05-15 10:18] VITALS: BP 99/63; PULSE 87; RESP 18; TEMP 36.6; O2SAT 99
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
== END 2023-05-15 13:30 | disposition home or self-care (01) | DRG 885 ==
PROVIDERS: Admitting Provider Psychiatry & Neurology Psychiatry; PCP Surgery; Visit Provider Psychiatry & Neurology Psychiatry
DX: F33.2 Major depressive disorder, recurrent severe without psychotic features (principal); R45.851 Suicidal ideations; Z63.8 Other specified problems related to primary support group; Z62.820 Parent-biological child conflict; Z81.1 Family history of alcohol abuse and dependence; Z81.8 Family history of other mental and behavioral disorders; F40.10 Social phobia, unspecified; F41.1 Generalized anxiety disorder; F41.0 Panic disorder [episodic paroxysmal anxiety]; Z62.811 Personal history of psychological abuse in childhood; F21 Schizotypal disorder; G47.33 Obstructive sleep apnea (adult) (pediatric); E11.9 Type 2 diabetes mellitus without complications; E78.00 Pure hypercholesterolemia, unspecified; F79 Unspecified intellectual disabilities; F43.12 Post-traumatic stress disorder, chronic; Z79.84 Long term (current) use of oral hypoglycemic drugs; Z79.891 Long term (current) use of opiate analgesic; F84.9 Pervasive developmental disorder, unspecified; F63.9 Impulse disorder, unspecified; F17.220 Nicotine dependence, chewing tobacco, uncomplicated
CPT/HCPCS: 97165; 99238

== ENCOUNTER → 2023-11-04 10:30 | Outpatient (BNVA) | payer MEDICARE, MEDICAID, SELFPAY | PROVIDERS: PCP Nurse Practitioner; Visit Provider Psychiatry & Neurology Psychiatry | DX: Z79.899 Other long term (current) drug therapy (principal); F21 Schizotypal disorder; F33.1 Major depressive disorder, recurrent, moderate; F79 Unspecified intellectual disabilities; F41.1 Generalized anxiety disorder; F43.12 Post-traumatic stress disorder, chronic | CPT/HCPCS: 80053; 80061; 83036; 84443; 85025 ==

== ENCOUNTER → 2024-02-01 07:59 | Outpatient (BNVA) | payer MEDICARE, MEDICAID, SELFPAY | PROVIDERS: PCP Nurse Practitioner; Visit Provider Otolaryngology | DX: F17.220 Nicotine dependence, chewing tobacco, uncomplicated (principal) | CPT/HCPCS: 99203; 99204 ==